=== PATIENT | female | born 1940 | race Caucasian/White ===

== ENCOUNTER 2019-07-19 12:39 | Inpatient (IN) | payer MEDICARE, OTHER ==
[~2019-07-19] VITALS: Ht 167.6 cm; Wt 118.4 kg
[~2019-07-19 12:39] MED LIST: ARTHROTEC EC 51 EACH; ASPIR 8181 M1 PO; B-121000 MC2 PO; CALCIUM 500 +1 EAC5 PO; CIPROFLOXACIN500 M1; COUMADIN 2.5MG2.5 M1; COUMADIN 4 MG TA4 M1 PO; COUMADIN 5 MG TA5 M1 PO; COUMADIN7.5 MG PO; COZAAR 25 MG TA25 M2 PO; ENOXAPARIN150 MG/11 SUBQ; FLAGYL500 MG; GABAPENTIN 100100 MG PO; IRON325 PO; KEFLEX500 M1 PO; KEFLEX500 MG PO; LASIX 20 MG TAB20 MG PO; LEVAQUIN 250 M250 MG PO; MEDROLDOSEPACK PO; MULTIVITAMINS1 EAC7 PO; NORCO 5-325 TA1 EAC2 PO; NORCO 5-325 TA1 EACH PO; ONE-A-DAY WOMENS PO; OXECTA7.5 MG PO; PANTOPRAZOLE SO40 M1 PO; PERCOCET 5-3251 EACH PO; PREDNISONE 5 MG5 M1 PO; PRINIVIL20 MG; PROTONIX40 M4 PO; SORINE 80 MG TA80 M1 PO; ULTRAM 50MG TAB50 MG PO; VITAMIN B-12100 MC1 PO; ZOFRAN ODT4 MG PO; ZOLOFT 50 MG TA50 M1 PO
[2019-07-19 12:43] VITALS: BP 132/75
[2019-07-19] MEDS ORDERED: NEURONTIN100 MG PO (12:52)
[2019-07-19 12:59] LABS: ABSOLUTE EOSINOPHILS 0.1 thou/uL (0.0-0.7); ABSOLUTE MONOCYTES 0.9 thou/uL (0.0-1.2); BASOPHILS 0.3 %; HEMATOCRIT 45.4 % (37.0-47.0); HEMOGLOBIN 15.1 gm/dL (12.0-15.0); LYMPHOCYTES 7.9 %; MCH 35.5 pg (26.0-34.0); MCHC 33.4 g/dL (28.0-37.0); MCV 106.2 fL (80.0-100.0); MONOCYTES 6.9 %; MPV 9.5 fl. (7.2-11.1); NUCLEATED RBCS 0 /100WBC; PLATELET COUNT* 322 thou/uL (150-400); POLYS 83.9 %; RBC 4.27 mil/uL (4.20-5.00); RDW-CV 13.1 % (10.5-14.5); WBC 13.1 thou/uL (4.0-11.0)
[2019-07-19 13:11] LABS: APTT 24.7 Seconds (25.0-31.3); INR 1.1; PROTIME 11.2 Seconds (9.20-11.50)
[2019-07-19 13:15] LABS: CALCIUM 7.8 mg/dL (8.5-10.1); CREATININE 0.9 mg/dL (0.6-1.3); POTASSIUM 4.4 mmol/L (3.5-5.1)
[2019-07-19 13:20] LABS: ALBUMIN 2.3 g/dL (3.4-5.0); MAGNESIUM 1.7 mg/dL (1.8-2.4); TOTAL BILIRUBIN 0.5 mg/dL (<0.1-1.0); TOTAL PROTEIN 6.1 g/dL (6.4-8.2)
[2019-07-19 15:30] VITALS: BP 113/75
[2019-07-19 15:31] VITALS: BP 150/68
--- NOTE | 2019-07-19 15:39 | 2DMMODE ---
[place] [address] 2 D/M-MODE ECHOCARDIOGRAM Name: JUAN JOSÉJACKSON Gamaliel Room: [place] [address] ADM IN M.R.#: [id number] Admission: 07/19/19 Attend Phys: Eugenie tsang Sa Discharge: Date of : 44 Date of Service: 07/19/19 1537 Report #: [id number] THIS REPORT FOR: cc: Cari Cowan,Cari Maradiaga,Dewayne Segovia MD [facility] ~ APPROVED REPORT Study performed: 07/19/2019 14:18:39 EXAM: Comprehensive 2D, Doppler, and color-flow Echocardiogram Patient Location: ER BSA: 2.25 HR: 116 bpm BP: 125/77 mmHg Other Information Study Quality: Fair Indications Atrial Fibrillation 2D Dimensions IVSd: 15.13 (7-11mm) LVOT Diam: 19.68 (18-24mm) LVDd: 44.15 mm PWd: 12.50 (7-11mm) Ascending Ao: 31.14 (22-36mm) LVDs: 33.25 (25-40mm) Aortic Root: 26.12 mm Volumes Left Atrial Volume (Systole) LA ESV Index: 27.00 mL/m2 Aortic Valve AoV Peak Samuel.: 0.92 m/s AO Peak Gr.: 3.37 mmHg LVOT Max P.67 mmHg AO Mean Gr.: 1.89 mmHg LVOT Mean P.61 mmHg LVOT Max V: 0.96 m/s AO V2 VTI: 18.50 cm LVOT Mean V: 0.58 m/s SHENG (VTI): 2.63 cm2 LVOT V1 VTI: 16.01 cm Mitral Valve E/A Ratio: 2.96 [place] [address] 2 D/M-MODE ECHOCARDIOGRAM Name: JACKSON CAN Room: [address] IN ..#: [id number] Admission: 07/19/19 Attend Phys: Eugenie tsang Sa Discharge: Date of : 44 Date of Service: 07/19/19 1537 Report #: [id number] MV Decel. Time: 120.17 ms MV E Max Samuel.: 1.14 m/s MV PHT: 34.85 ms MVA (PHT): 6.31 cm2 TDI E/Lateral E': 11.40 E/Medial E': 16.29 Medial E' Samuel.: 0.07 m/s Lateral E' Samuel.: 0.10 m/s Pulmonary Valve PV Peak Samuel.: 0.88 m/s PV Peak Gr.: 3.07 mmHg Tricuspid Valve RAP Estimate: 5.00 mmHg TR Peak Gr.: 35.57 mmHg RVSP: 40.57 mmHg PA Pressure: 40.57 mmHg Left Ventricle The left ventricle is normal size. There is global hypokinesis of the left ventricle. Mild concentric left ventricular hypertrophy. Left ventricular systolic function is moderately decreased. LVEF is 30-35%. Right Ventricle The right ventricle is normal size. The right ventricular systolic function is normal. Atria The left atrium size is normal. Interatrial septum not well visualized. The right atrium size is normal. Aortic Valve The Aortic valve is sclerotic. No aortic regurgitation is present. There is no aortic valvular stenosis. Mitral Valve There is mitral annular calcification. Mild mitral regurgitation. No evidence of mitral valve stenosis. Tricuspid Valve The tricuspid valve is normal in structure. Mild tricuspid regurgitation. estimated pa pressure 35 mm Hg Pulmonic Valve Pulmonic valve is not well visualized. There is [place] [address] 2 D/M-MODE ECHOCARDIOGRAM Name: JACKSON CAN Gamaliel Room: [address] IN [facility]#: [id number] Admission: 07/19/19 Attend Phys: Eugenie tsang Sa Discharge: Date of : 44 Date of Service: 07/19/19 1537 Report #: [id number] regurgitation. Great Vessels The aortic root is normal in size. IVC is not visualized. Pericardium There is no pericardial effusion. <Conclusion> Mild concentric left ventricular hypertrophy. LVEF is 30-35%. The Aortic valve is sclerotic. <ELECTRONICALLY SIGNED> By: Dewayne Garcia MD, [facility] 07/19/19 [phone] Dewayne Garcia MD, FACC /INF
[2019-07-19] MEDS ORDERED: XANAX 0.5 MG0.5 MG PO (15:53)
--- NOTE | 2019-07-19 15:58 | NUR ---
pt admitted from ed to room 212 at 1520. pt pulled to bed, extra linens removed, tele monitor applied. cardizem gtt at 15 ml/hr. vss.
--- NOTE | 2019-07-19 16:00 | NUR ---
pt states she has not been taking her lasix since she fell and broke her leg because she is unable to get up and go to the bathroom. pt states she is up about 9 lbs from her normal dry weight.
--- NOTE | 2019-07-19 16:36 | NUR ---
per dr mcghee titrate up cardizem slowly so it was increased from 15 ml/hr to 17.5 ml/hr
[2019-07-19 16:40] VITALS: BP 119/85
--- NOTE | 2019-07-19 17:36 | EKG ---
[place] [address] ELECTROCARDIOGRAM REPORT Name: JACKSON CAN Room: [address] ADM IN [facility].#: [id number] Admission: 07/19/19 Attend Phys: Eugenie tsang Sa Discharge: Date of : 44 Date of Service: 07/19/19 1245 Report #: [id number] THIS REPORT FOR: //name// [facility] ED Test Date: 2019-07-19 Test Time: 12:45:56 Pat Name: JACKSON CAN Department: Room: [facility] Gender: F Public Health Doctor: : 1940 Requested By: Arthur Weller Order Number: [id number] MD: Dewayne Garcia Measurements Intervals [place] Rate: 148 P: [place]: QRS: 8 QRSD: 89 T: 98 QT: 297 QTc: 467 Interpretive Statements Atrial fibrillation with rapid V-rate Repolarization abnormality, prob rate related Baseline wander in lead(s) V1,V2 Compared to ECG 01/29/2016 19:40:14 Sinus rhythm no longer present Electronically Signed On 07-19-2019 17:34:03 CDT by Dewayne Garcia [email or web address] <ELECTRONICALLY SIGNED> By: Dewayne Garcia MD, FAC 07/19/19 1734 1245 1245 Dewayne Garcia MD, FAC /EPI
--- NOTE | 2019-07-19 19:15 | NUR ---
called elevated troponin to dr ken, orders received for nitroglycerin paste and sublingual prn nitro for active chest pain.
[2019-07-19 19:50] VITALS: BP 106/62
[2019-07-19 23:50] VITALS: BP 103/56
[2019-07-20 04:15] VITALS: BP 102/60
[2019-07-20 05:15] LABS: HEMOGLOBIN 14.2 gm/dL (12.0-15.0); MCH 34.5 pg (26.0-34.0); MCHC 32.2 g/dL (28.0-37.0); MPV 9.8 fl. (7.2-11.1); RBC 4.12 mil/uL (4.20-5.00); RDW-CV 13.2 % (10.5-14.5); WBC 14.1 thou/uL (4.0-11.0)
[2019-07-20 05:29] LABS: ALBUMIN 2.3 g/dL (3.4-5.0); CALCIUM 7.8 mg/dL (8.5-10.1); MAGNESIUM 1.9 mg/dL (1.8-2.4); PHOSPHORUS* 3.8 mg/dL (2.5-4.9); POTASSIUM 4.7 mmol/L (3.5-5.1)
[2019-07-20 07:45] VITALS: BP 108/65
[2019-07-20 08:35] VITALS: BP 102/60
[2019-07-20 17:36] VITALS: BP 112/54
--- NOTE | 2019-07-20 19:57 | NUR ---
Pt started on cardizem PO today, had N/V multiple times. Zofran given, with a little relief. She refused to get up with PT today. Panus and breast excoration, nystatin powder ordered. Remains afib on the monitor. VSS. Calls approprialty for help. Report given to ASTER platt.
[2019-07-20 20:00] VITALS: BP 104/57
[2019-07-20 20:10] VITALS: BP 127/69
[2019-07-21] VITALS: BP 97/58
[2019-07-21 04:00] VITALS: BP 96/44
[2019-07-21 04:43] LABS: HEMATOCRIT 39.4 % (37.0-47.0); HEMOGLOBIN 12.9 gm/dL (12.0-15.0); MCH 34.7 pg (26.0-34.0); MCHC 32.9 g/dL (28.0-37.0); MCV 105.6 fL (80.0-100.0); MPV 9.5 fl. (7.2-11.1); RBC 3.73 mil/uL (4.20-5.00); RDW-CV 12.9 % (10.5-14.5); WBC 12.8 thou/uL (4.0-11.0)
[2019-07-21 05:02] LABS: CHOLESTEROL 164 mg/dL (<200); HDL CHOLESTEROL 35 mg/dL (>40); LDL CHOLESTEROL 116 mg/dL (<100); TC:HDL 4.7 Ratio (Not establshd); TRIGLYCERIDE 69 mg/dL (<150); VLDL 14 mg/dL (<40)
[2019-07-21 05:06] LABS: SERUM ASSESSMENT Clear
[2019-07-21 07:52] VITALS: BP 119/50
[2019-07-21] MEDS ORDERED: ELIQUIS5 MG PO (08:46)
[2019-07-21] MEDS ORDERED: COREG3.125 MG PO (08:46)
[2019-07-21] MEDS ORDERED: NITROSTAT0.4 MG SUBLING (08:46)
[2019-07-21] MEDS ORDERED: ZETIA10 MG PO (08:58)
[2019-07-21] MEDS ORDERED: FOLIC ACID1 MG PO ×2 (08:58→11:56)
[2019-07-21] MEDS ORDERED: SENNA8.6 MG PO (08:58)
[2019-07-21] MEDS ORDERED: NITROGLYCERIN0.4 MG SUBLING (11:08)
[2019-07-21] MEDS ORDERED: RED YEAST RICE600 M1 PO (11:10)
[2019-07-21 11:45] VITALS: BP 89/47
[2019-07-21] MEDS ORDERED: SENNA PLUS TAB1 EACH PO (11:55)
[2019-07-21 14:13] VITALS: BP 102/60
--- NOTE | 2019-07-23 15:21 | CON ---
[address] [address] CONSULTATION Name: JACKSON CAN Room: [address] IN .R.#: [id number] Admission: 07/19/19 Attend Phys: Eugenie Blackburn Discharge: 07/21/19 Date of : 44 Report #: [id number] THIS REPORT FOR: //name// cc: Cari Cowan Linda J. DO THIS REPORT FOR: //name// CC: Eugenie Cortes DO DATE OF SERVICE: 07/19/2019 CARDIOLOGY CONSULTATION HISTORY OF PRESENT ILLNESS: The patient is a 79-year-old white female who I was asked to see in the hospital after she is noted to be in atrial fibrillation. The patient apparently presented with atrial fibrillation about 4 years ago and required cardioversion. She has been on sotalol since that time. She was on Eliquis for about a year, but then apparently developed GI bleeding and required cauterization. She has had no further bleeding. She last saw her in Cardiology Clinic in February. She denies any recent palpitations, shortness of breath or chest pain. She was doing well until recently she fell and broke her leg. She went to [facility] in [place]. She was admitted overnight and sent home with a brace. She is not very active at this time and uses a walker. She notes that this morning she woke up, felt her heart beating irregular, she felt diaphoretic, short of breath, and had some chest tightness. There is no radiation of the pain. She called EMS and brought here to [place]. She was found to be in atrial fibrillation. She was started on IV diltiazem. She has had no recent syncope, fever or cough. PAST MEDICAL HISTORY: She has had multiple surgical procedures including a cholecystectomy. She had an hemicolectomy for colon cancer. 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 She has had parathyroid surgery. Part of her stomach removed in the past. She has had previous pulmonary embolus. She was diagnosed with obsessive compulsive behavior in the past. She saw a psychiatrist. CURRENT MEDICATIONS: Include Xanax, aspirin, Neurontin, losartan, potassium, Zoloft, sotalol she took 40 mg twice a day, and tramadol. ALLERGIES: SHE HAD ALLERGY TO PROTONIX AND SIMVASTATIN. FAMILY HISTORY: Negative for heart disease. SOCIAL HISTORY: She is . [place] [address] CONSULTATION Name: JACKSON CAN Room: [address] IN M.R.#: [id number] Admission: 07/19/19 Attend Phys: Eugenie Blackburn Discharge: 07/21/19 Date of : 44 Report #: [id number] Nonsmoker and nondrinker. REVIEW OF SYSTEMS: She is overweight, standing 5 feet 6 inches, weighs 251 pounds. She apparently had a sleep study in the past and could not tolerate CPAP. No history of stroke, asthma, liver disease or kidney disease. She has chronic back pain. No chronic skin condition. PHYSICAL EXAMINATION: GENERAL: Revealed an elderly female lying in bed. She appeared in no distress. VITAL SIGNS: She has blood pressure 120/80, pulse is 100, and she is afebrile. HEENT: She was anicteric. Conjunctivae pink. Mucous membranes moist. NECK: . CHEST: Clear to auscultation. CARDIOVASCULAR: Irregular, tachycardia. ABDOMEN: Obese. EXTREMITIES: Had no pitting edema. Dorsalis pedis pulse 1+ bilaterally. SKIN: Cool and dry. NEUROLOGIC: Nonfocal. DIAGNOSTIC DATA: ECG shows atrial fibrillation with rapid ventricular response rate. No significant ST or T-wave change. Her workup, previous echocardiogram done earlier today showed ejection fraction of only 30-35%, left ventricular hypertrophy, and aortic sclerosis. Workup in the Emergency Room included a chest x-ray that showed cardiomegaly and clear lung gallo. LABORATORY WORK: She has lab work. Sodium 143 and creatinine 0.9. Liver function studies reveal alkaline phosphatase is 162. SGOT 34. Troponin 0.34. BNP 7487. TSH 2.7. Her white blood cell count 13.1 and hemoglobin 15.1. IMPRESSION AND RECOMMENDATIONS: 1. Recurrent atrial fibrillation. I would recommend restarting Eliquis. I would increase sotalol to 120 mg twice a day. If she fails to convert, she might require cardioversion. 2. Cardiomyopathy, reason unclear. The patient is on a beta olu and ARB. 3. Obsessive compulsive behavior. 4. Hypertension. The patient is on an ARB and beta olu. 5. History of pulmonary embolus. 6. History of colon cancer. 7. Morbid obesity. 8. Previous splenectomy. 9. Recent fracture of her leg. 10. History of sleep apnea. <ELECTRONICALLY SIGNED> By: Dewayne Garcia MD, [facility] 07/23/19 1521 1707 [id number] Garcia MD, [facility] /nt
--- NOTE | 2019-07-23 16:09 | EKG ---
[place] [address] ELECTROCARDIOGRAM REPORT Name: JACKSON CAN Room: [address] IN [facility]#: [id number] Admission: 07/19/19 Attend Phys: Eugenie tsang Sa Discharge: 07/21/19 Date of : 44 Date of Service: 07/20/19 1626 Report #: [id number] THIS REPORT FOR: //name// [facility] Test Date: 2019-07-20 Test Time: 16:26:40 Pat Name: JACKSON CAN Department: Room: [address] Gender: F Events Traffic Controller: 1883 : 1940 Requested By: Dewayne Garcia Order Number: [id number] Chelsey MD: Agapito Kam Measurements Intervals [place] Rate: 113 P: ME: QRS: -19 QRSD: 80 T: -30 QT: 438 QTc: 601 Interpretive Statements Atrial fibrillation RSR' in V1 or V2, probably normal variant Probable inferior infarct, age indeterminate Prolonged QT interval Compared to ECG 07/19/2019 12:45:56 RSR' in V1 or V2 now present Myocardial infarct finding now present Prolonged QT interval now present Early repolarization no longer present Electronically Signed On 07-23-2019 16:07:48 CDT by Agapito Kam [email or web address] <ELECTRONICALLY SIGNED> By: Agapito Kam MD, [facility] 07/23/19 1607 1626 1626 Agapito Kam MD, [facility] /EPI
== END 2019-07-21 14:00 | disposition home or self-care (01) | DRG 280 ==
LOC: M.ERS 12:39 → M.TBA-ER 13:21 → M.2W 13:21
PROVIDERS: Emergency Medicine Emergency Medical Services; Internal Medicine Cardiovascular Disease; ADMIT Family Medicine
DX: I21.A1 Myocardial infarction type 2 (principal); E43 Unspecified severe protein-calorie malnutrition; R65.11 Systemic inflammatory response syndrome (SIRS) of non-infectious origin with acute organ dysfunction; I48.20 Chronic atrial fibrillation, unspecified; Z68.41 Body mass index [BMI] 40.0-44.9, adult; I43 Cardiomyopathy in diseases classified elsewhere; F32.9 Major depressive disorder, single episode, unspecified; M19.90 Unspecified osteoarthritis, unspecified site; E66.01 Morbid (severe) obesity due to excess calories; E78.5 Hyperlipidemia, unspecified; I11.0 Hypertensive heart disease with heart failure; I50.9 Heart failure, unspecified; F42.9 Obsessive-compulsive disorder, unspecified; D75.89 Other specified diseases of blood and blood-forming organs; E83.42 Hypomagnesemia; E83.51 Hypocalcemia; Z86.711 Personal history of pulmonary embolism; Z85.038 Personal history of other malignant neoplasm of large intestine; Z87.442 Personal history of urinary calculi; Z87.11 Personal history of peptic ulcer disease; Z90.49 Acquired absence of other specified parts of digestive tract; Z90.81 Acquired absence of spleen; Z98.84 Bariatric surgery status; Z79.82 Long term (current) use of aspirin; Z79.899 Other long term (current) drug therapy; Z88.8 Allergy status to other drugs, medicaments and biological substances; Z87.891 Personal history of nicotine dependence; Z86.718 Personal history of other venous thrombosis and embolism

== ENCOUNTER 2019-11-06 01:21 | Inpatient (IN) | payer MEDICARE, OTHER ==
[~2019-11-06] VITALS: Ht 167.6 cm; Wt 124.7 kg
[2019-11-06] VITALS (7 sets, daily range): BP systolic 106–159; BP diastolic 47–86
[~2019-11-06 01:21] MED LIST changes: +COREG3.125 MG PO; +ELIQUIS5 MG PO; +FOLIC ACID1 MG PO; +NEURONTIN100 MG PO; +NITROGLYCERIN0.4 MG SUBLING; +NITROSTAT0.4 MG SUBLING; +RED YEAST RICE600 M1 PO; +SENNA PLUS TAB1 EACH PO; +SENNA8.6 MG PO; +XANAX 0.5 MG0.5 MG PO; +ZETIA10 MG PO
[2019-11-06 01:50] LABS: ABSOLUTE BASOPHILS 0.1 thou/uL (0.0-0.2); ABSOLUTE EOSINOPHILS 0.4 thou/uL (0.0-0.7); ABSOLUTE LYMPHOCYTES 1.3 thou/uL (0.8-5.3); ABSOLUTE MONOCYTES 0.6 thou/uL (0.0-1.2); ABSOLUTE NEUTROPHILS 4.8 thou/uL (1.6-8.1); BASOPHILS 1.1 %; EOSINOPHILS 5.8 %; HEMATOCRIT 43.6 % (37.0-47.0); HEMOGLOBIN 14.4 gm/dL (12.0-15.0); LYMPHOCYTES 18.5 %; MCH 34.5 pg (26.0-34.0); MCHC 33.1 g/dL (28.0-37.0); MCV 104.2 fL (80.0-100.0); MONOCYTES 7.8 %; MPV 10.2 fl. (7.2-11.1); NUCLEATED RBCS 0 /100WBC; PLATELET COUNT* 199 thou/uL (150-400); POLYS 66.8 %; RBC 4.19 mil/uL (4.20-5.00); RDW-CV 14.5 % (10.5-14.5); WBC 7.2 thou/uL (4.0-11.0)
[2019-11-06 02:00] LABS: ANION GAP < 0 mmol/L (7-16); BUN 17 mg/dL (7-18); CALCIUM 7.6 mg/dL (8.5-10.1); CHLORIDE 106 mmol/L (98-107); CO2 40 mmol/L (21-32); CREATININE 0.9 mg/dL (0.6-1.3); GLUCOSE 145 mg/dL (70-99); POTASSIUM 3.2 mmol/L (3.5-5.1); SODIUM 144 mmol/L (136-145)
[2019-11-06 02:01] LABS: INR 1.3; PROTIME 13.4 Seconds (9.20-11.50)
[2019-11-06 02:10] LABS: ALBUMIN 1.7 g/dL (3.4-5.0); ALKALINE PHOSPHATASE 116 U/L (46-116); LIPASE 47 U/L (73-393); MAGNESIUM 1.6 mg/dL (1.8-2.4); NT-PRO BRAIN NAT PEPTIDE 5286 pg/mL (<300); SGOT 16 U/L (15-37); TOTAL BILIRUBIN 0.5 mg/dL (<0.1-1.0); TOTAL PROTEIN 5.6 g/dL (6.4-8.2)
[2019-11-06 02:20] LABS: SGPT 7 U/L (30-65)
--- NOTE | 2019-11-06 07:03 | NUR ---
PT ARRIVED TO UNIT AT 0605. PLACED IN COVID ISOLATION. MEDICATION RECONCILLIATION NEEDS TO BE COMPLETED BY DAY SHIFT. ADMISSION ASSESSMENT AND HX COMPLETE.
--- NOTE | 2019-11-06 09:27 | NUR ---
CM ATTEMPTED TO SPEAK TO THE PT TO DISCUSS HER HOME SITUATION, DISCHARGE PLANNING, AND TO INFORM OF THE ROLE OF CM. PT RESTING WITH YES CLOSED AND NURSING INFORMS THAT PT HAS AMS. CM CONACTED PT'S SON AND HE INFORMS THAT PT RESIDES AT HOME WITH SPOUSE, AND HE LIVES WITH THEM. PT'S SON INFORMS THAT HE IS AT HOME WITH THE PT 19/09 AND PROVIDES ALL CARES FOR HER. PT USES A [employer] LIFT FO TRANSFERS. PT OWNS A WALKER AND ELECTRIC WHEELCHAIR, BUT HAS NOT USED EITHER OVER THE PAST YEAR. PT HAS A HX OF HH, BU PT'S SON COULD NOT RECALL THE NAME. PT HAS 0 HX OF SNF AND PT'S SON INFORMS THAT 'SHE WOULD NEVER AGREE TO GO TO A GROUP HOME'. CM WILL REMAIN AVAILABLE TO ASSIST AND FOLLOW NEEDED.
--- NOTE | 2019-11-06 13:36 | EKG ---
[place] [address] ELECTROCARDIOGRAM REPORT Name: JUAN JOSÉJACKSON Room: [address] ADM IN [facility].#: [id number] Admission: 11/06/19 Attend Phys: Iza Case, Discharge: Date of : 44 Date of Service: 11/06/19 0154 Report #: [id number] THIS REPORT FOR: //name// [facility] ED Test Date: 2019-11-06 Test Time: 01:54:40 Pat Name: JACKSON CAN Department: Room: [facility] Gender: F Medical Information Specialist: YOGESH : 1940 Requested By: Vilma Anderson Order Number: [id number] MD: Dewayne Garcia Measurements Intervals [place] Rate: 52 P: [place]: QRS: 26 QRSD: 98 T: 45 QT: 595 QTc: 554 Interpretive Statements Atrial fibrillation Low voltage, extremity and precordial leads RSR' in V1 or V2, probably normal variant Prolonged QT interval Compared to ECG 07/20/2019 16:26:40 Low QRS voltage now present rate has slowed Electronically Signed On 11-06-2019 13:36:19 CDT by Dewayne Garcia [email or web address] <ELECTRONICALLY SIGNED> By: Dewayne Garcia MD, [facility] 11/06/19 1336 0154 0154 Dewayne Garcia MD, [facility] /EPI
--- NOTE | 2019-11-06 13:38 | EKG ---
[place] [address] ELECTROCARDIOGRAM REPORT Name: JACKSON CAN Room: [address] ADM IN .R.#: [id number] Admission: 11/06/19 Attend Phys: Iza Case, Discharge: Date of : 44 Date of Service: 11/06/19 0330 Report #: [id number] THIS REPORT FOR: //name// [facility] ED Test Date: 2019-11-06 Test Time: 03:30:14 Pat Name: JACKSON CAN Department: Room: [facility] Gender: F Circulation Librarian: MERYL : 1940 Requested By: Vilma Anderson Order Number: [id number] MD: Dewayne Garcia Measurements Intervals [place] Rate: 71 P: [place]: QRS: 15 QRSD: 83 T: 143 QT: 551 QTc: 599 Interpretive Statements Atrial fibrillation Low voltage, precordial leads Abnormal T, consider ischemia, lateral leads Baseline wander in lead(s) III Compared to ECG 11/06/2019 01:54:40 no change Electronically Signed On 11-06-2019 13:38:32 CDT by Dewyane Garcia [email or web address] <ELECTRONICALLY SIGNED> By: Dewayne Garcia MD, [facility] 11/06/19 1338 0330 0330 Dewayne Garcia MD, [facility] /EPI
--- NOTE | 2019-11-06 17:18 | 2DMMODE ---
[place] [address] 2 D/M-MODE ECHOCARDIOGRAM Name: JACKSON CAN Room: [address] IN [facility]#: [id number] Admission: 11/06/19 Attend Phys: Iza Case, Discharge: Date of : 44 Date of Service: 11/06/19 1718 Report #: [id number] THIS REPORT FOR: cc: Cari Cowan,Cari Maradiaga,Dewayne Segovia MD [facility] ~ APPROVED REPORT Study performed: 11/06/2019 15:21:57 EXAM: Comprehensive 2D, Doppler, and color-flow Echocardiogram Patient Location: In-Patient Room #: [facility] Status: routine BSA: 2.18 HR: 72 bpm BP: 106/47 mmHg Rhythm: Atrial Fibrillation Other Information Study Quality: Good Indications Dyspnea 2D Dimensions IVSd: 10.95 (7-11mm) LVOT Diam: 20.19 (18-24mm) LVDd: 41.82 mm PWd: 11.39 (7-11mm) Ascending Ao: 33.08 (22-36mm) LVDs: 21.89 (25-40mm) Aortic Root: 28.08 mm Volumes Left Atrial Volume (Systole) LA ESV Index: 25.80 mL/m2 Aortic Valve AoV Peak Samuel.: 1.63 m/s AO Peak Gr.: 10.65 mmHg LVOT Max P.25 mmHg AO Mean Gr.: 5.58 mmHg LVOT Mean P.51 mmHg LVOT Max V: 1.35 m/s AO V2 VTI: 29.63 cm LVOT Mean V: 0.86 m/s SHENG (VTI): 2.59 cm2 LVOT V1 VTI: 23.97 [place] [address] 2 D/M-MODE ECHOCARDIOGRAM Name: JACKSON CAN Room: [address] IN [facility]#: [id number] Admission: 11/06/19 Attend Phys: Iza Case, Discharge: Date of : 44 Date of Service: 11/06/19 1718 Report #: [id number] Mitral Valve MV Decel. Time: 151.29 ms MV PHT: 43.87 ms MVA (PHT): 5.01 cm2 TDI Medial E' Samuel.: 0.12 m/s Lateral E' Samuel.: 0.14 m/s Pulmonary Valve PV Peak Samuel.: 1.28 m/s PV Peak Gr.: 6.59 mmHg Tricuspid Valve RAP Estimate: 5.00 mmHg TR Peak Gr.: 41.33 mmHg RVSP: 46.00 mmHg PA Pressure: 46.00 mmHg Left Ventricle The left ventricle is normal size. There is normal LV segmental wall motion. There is normal left ventricular wall thickness. Left ventricular systolic function is normal. The left ventricular ejection fraction is within the normal range. LVEF is 55-60%. This study is not technically sufficient to allow evaluation of the LV diastolic function due to atrial fibrillation. Right Ventricle The right ventricle is normal size. The right ventricular systolic function is normal. Atria Left atrium is mildly dilated. Right atrium is mildly dilated. Aortic Valve Mild aortic valve sclerosis. No aortic regurgitation is present. There is no aortic valvular stenosis. Mitral Valve There is mitral annular calcification. The mitral valve is normal in structure. Trace mitral regurgitation. No evidence of mitral valve stenosis. Tricuspid Valve The tricuspid valve is normal in structure. Mild tricuspid regurgitation. estimated pa pressure 50 [place] [address] 2 D/M-MODE ECHOCARDIOGRAM Name: JACKSON CAN Room: [address]#: [id number] Admission: 11/06/19 Attend Phys: Iza Case, Discharge: Date of : 44 Date of Service: 11/06/19 1718 Report #: [id number] Pulmonic Valve Pulmonic valve is not well visualized. Trace pulmonic regurgitation. Great Vessels The aortic root is normal in size. IVC is normal in size and collapses >50% with inspiration. Pericardium There is no pericardial effusion. <Conclusion> LVEF is 55-60%. Left atrium is mildly dilated. Mild aortic valve sclerosis. Mild tricuspid regurgitation. estimated pa pressure 50 mm Hg <ELECTRONICALLY SIGNED> By: Dewayne Garcia MD, [facility] 11/06/198 17 17 Dewayne Garcia MD, FACC /INF
--- NOTE | 2019-11-06 20:11 | NUR ---
ASSUMED PT CARE AT 0730, PT AOX4, NO C/O PAIN OR SHORTNESS OF BREATH. PT BEING TURNED Q2H, SOME SKIN IRRITATION NOTED UNDER PANNUS AND UNDER BOTH BREASTS, CONSULTED, NO NEW ORDERS SO COAL BAGGER CONSULTED TO GET INTERDRY WHICH WAS BROUGHT UP AND PLACED UNDER PANNUS AND BREASTS. PT GOAL IS TO REMAIN FREE FROM SKIN BREAKDOWN. COAL BAGGER ALSO CONSULTED ABOUT GETTING BARIATRIC BED ORDERED FOR PT, STILL AWAITING BED. AM ASSESSMENT CHARTED, MEDS PER MAR, HOURLY ROUNDING OBSERVED, FALL PRECAUTIONS IN PLACE, CALL LIGHT W/IN REACH.
[2019-11-07 00:28] VITALS: BP 97/58
--- NOTE | 2019-11-07 02:17 | NUR ---
PT ALERT ORIENTED. WEAKNESS, PT NEEDS ENCOURAGEMENT TO HOLD WATER GLASS. TELEMETRY SHOWS AFIB RATE CONTROLLED. INCONTINENT OF URINE. O2 AT 4 LITERS NC. AFEBRILE. COVID PENDING. WCTM
[2019-11-07 04:40] VITALS: BP 130/56
[2019-11-07 04:52] LABS: HEMATOCRIT 44.6 % (37.0-47.0); HEMOGLOBIN 14.5 gm/dL (12.0-15.0); MCH 33.7 pg (26.0-34.0); MCHC 32.4 g/dL (28.0-37.0); MCV 104.1 fL (80.0-100.0); MPV 10.5 fl. (7.2-11.1); RBC 4.28 mil/uL (4.20-5.00); RDW-CV 14.3 % (10.5-14.5); WBC 7.3 thou/uL (4.0-11.0)
[2019-11-07 05:10] LABS: CALCIUM 7.9 mg/dL (8.5-10.1); POTASSIUM 4.5 mmol/L (3.5-5.1)
--- NOTE | 2019-11-07 06:39 | NUR ---
PT AM K+ 3.4 prn DOSE OF POTASSIUM GIVEN ALONG WITH SCHEDULED DOSE.
[2019-11-07 08:00] VITALS: BP 116/62
--- NOTE | 2019-11-07 11:44 | NUR ---
ORDERS RECEIVED AND COMPUTERIZED CHART REVIEWED. PATIENT IS BED AND W/C BOUND AND RELIES ON MECHANICAL LIFTING DEVICE FOR TRANSFERS IN/OUT OF BED. REQUIRES TOTAL ASSIST FOR SELF CARES. PATIENT DECLINES P.T. STATING THAT SHE WANTS TO BE TAKEN OFF THERAPY'S LIST A RESULT. DALJIT HULL, MPT
--- NOTE | 2019-11-07 12:28 | NUR ---
ASSUMED PT CARE AT 0730, PT AOX4 BUT SOMETIMES FORGETFUL. PT HAD NO C/O PAIN OR SHORTNESS OF BREATH. PT WAS IN [facility] FOR COVID RULEOUT THIS MORNING BUT TEST CAME BACK NEGATIVE THIS MORNING AND ISO DC'D. PT BEING TURNED Q2H AND IS INCONTINENT OF URINE, BEING CLEANED UP FREQUENTLY. PT GOAL IS TO REMAIN FREE FROM SKIN BREAKDOWN AND KEEP SATS ABOVE 92%. AM ASSESSMENT CHARTED, MEDS PER MAR, HOURLY ROUNDING OBSERVED, FALL PRECAUTIONS IN PLACE, CALL LIGHT W/IN REACH, WILL CONTINUE POC.
--- NOTE | 2019-11-07 14:31 | CON ---
[address] [address] CONSULTATION Name: JACKSON CAN Room: [address] IN M.R.#: [id number] Admission: 11/06/19 Attend Phys: Iza Case MD Discharge: Date of : 44 Report #: [id number] THIS REPORT FOR: //name// cc: Cari Cowan Linda J. DO ~ THIS REPORT FOR: //name// CC: Iza Sanchez DATE OF SERVICE: 11/06/2019 CARDIOLOGY CONSULTATION HISTORY OF PRESENT ILLNESS: The patient is a 79-year-old white female who I was asked to see in the hospital today after she complained of being short of breath. The patient has an extensive and complicated past medical history. She has a history of paroxysmal atrial fibrillation and has required cardioversion in the past. She previously developed a GI bleed while anticoagulated. I last saw her in Cardiology Clinic in February of this year when she was on sotalol. She was recently admitted to [place] in June with AFib. It was decided to aim for rate control and she was taken off the sotalol. She was doing well until the past few days, she has had increasing shortness of breath and cough. She notes her heart was racing. She called EMS and brought here to [place] and admitted. Cardiology consultation was requested. She has had no edema. PAST MEDICAL HISTORY: She has had cholecystectomy, history of colon cancer, gastric bypass for obesity. She has had previous splenectomy at the time of her laparotomy. She has a history of previous pulmonary embolus. She has a history of depression, chronic back pain. She is primarily in a wheelchair, previous esophageal dilatation. CURRENT MEDICATIONS: Consist of Zoloft, [place], Neurontin, Lasix, Xanax, red yeast rice supplements, folic acid. She has been on Xarelto in the past couple of weeks. ALLERGIES: SHE HAS INTOLERANCE TO STATIN DRUGS. FAMILY HISTORY: Her mother had heart disease. SOCIAL HISTORY: She is . She lives here in [place]. Nonsmoker. No alcohol abuse. REVIEW OF SYSTEMS: She is overweight, standing 5 feet 6 inches and weighing [address] [place] [address] CONSULTATION Name: JUAN JOSÉJACKSON Gamaliel Room: [address] IN [facility].#: [id number] Admission: 11/06/19 Attend Phys: Iza Case MD Discharge: Date of : 44 Report #: [id number]. No history of stroke, asthma. She has a history of pulmonary embolus. No liver disease. She had Norris's palsy. No chronic skin condition. PHYSICAL EXAMINATION: GENERAL: Revealed an elderly female lying in bed. She appeared in no distress. VITAL SIGNS: She had a blood pressure of 110/80, pulse is 70. She is afebrile. HEENT: She is anicteric. Conjunctivae are pink. Mucous membranes moist. NECK: Veins difficult to assess due to obesity. CHEST: Clear to auscultation. CARDIOVASCULAR: Irregular rhythm. ABDOMEN: Obese. EXTREMITIES: Had no significant edema. SKIN: Cool and dry. NEUROLOGIC: Nonfocal. DIAGNOSTIC STUDIES: Her ECG on admission showed atrial fibrillation, nonspecific ST and T-wave change. She had an echocardiogram in June of this year that showed an ejection fraction only 35%, aortic sclerosis, left ventricular hypertrophy. Her portable chest x-ray done in the Emergency Room today shows atelectasis, small effusions, pulmonary edema. CT scan of the chest was performed with IV contrast that showed pleural effusions, pulmonary edema. LABORATORY WORK: Sodium 144, potassium 3.2, creatinine 0.9. Liver function studies were normal. Troponin 0.06. BNP 5286. TSH 2.7. Her white blood cell count 7.2, hemoglobin 14.4. IMPRESSION AND RECOMMENDATIONS: 1. Atrial fibrillation. Rate controlled. I would continue chronic anticoagulation with Xarelto. 2. Previous history of colon cancer. 3. History of pulmonary embolism. 4. Chronic back pain. 5. Obesity. Previous bariatric surgery. 6. Previous esophageal dilatation. 7. High blood pressure. The patient has been on an ARB and beta olu in the past. <ELECTRONICALLY SIGNED> By: Dewayne Garcia MD, [facility] 11/07/19 1431 1646 1710Dewayne Garcia MD, FAC /nt
[2019-11-07 16:00] VITALS: BP 159/61
[2019-11-07 20:00] VITALS: BP 120/48
[2019-11-08] VITALS: BP 108/57
--- NOTE | 2019-11-08 02:38 | NUR ---
PT ALERT ORIENTED. ON BARIATIRIC BED. TURN Q 2 HRS. DENIES PAIN. TELEMETRY SHOWS AFIB. INCONTINENT OF URINE. WILL CONTINUE TO MONITOR.
[2019-11-08 04:00] VITALS: BP 123/49
[2019-11-08 04:59] LABS: HEMATOCRIT 42.2 % (37.0-47.0); HEMOGLOBIN 13.9 gm/dL (12.0-15.0); MCH 34.2 pg (26.0-34.0); MCV 103.6 fL (80.0-100.0); MPV 10.4 fl. (7.2-11.1); RBC 4.07 mil/uL (4.20-5.00); RDW-CV 14.2 % (10.5-14.5); WBC 10.2 thou/uL (4.0-11.0)
[2019-11-08 05:15] LABS: CALCIUM 7.8 mg/dL (8.5-10.1); CREATININE 0.9 mg/dL (0.6-1.3); MAGNESIUM 1.7 mg/dL (1.8-2.4); POTASSIUM 4.3 mmol/L (3.5-5.1)
[2019-11-08 07:56] VITALS: BP 130/57
--- NOTE | 2019-11-08 09:33 | NUR ---
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 IN PLACE ORDERED, TRACING A-FIB/RATE CONTROLED- UPON ASSESSMENT PT NOTED TO BE RESTING IN BED, EYES CLOSED- PT A&O X4- INCONT OF B/B- Q 2HOUR TURNS IN PLACE INDICATED- LCTA, DIMINISHED IN BASES- DYSPNEA NOTED ON EXERTION- VSS, O2 SAT 100% ON 3.5L VIA NC- ABD SOFT/OBESE/NON-TENDER, BS X4 QUADS-LAST BM REPORTED 11/07/19- PINKNESS NOTED TO RIGHT PANNUS FOLD- IV NOTED TO LEFT HAND INTACT AND SL- TONY BREAST WITH INNER DRY IN PLACE INDICATED- DRY/SCALEY SKIN NOTED WITH BRUISING- TRACE BLE EDEMA NOTED- GOOD PO INTAKE NOTED THIS AM WITH BREAKFAST- CALL LIGHT AND PERSONAL BELONGINGS WITH IN REACH- PT DENIES ANY C/O PAIN/DISCOMFORT AT THIS TIME- HOURLY ROUNDS IN PLACE R/T SAFETY/NEEDS- ALL NEEDS MET AT THIS TIME-WCTM
[2019-11-08 12:00] VITALS: BP 116/55
--- NOTE | 2019-11-08 14:21 | NUR ---
CHF MEDICATION EDUCATION: Went in to educate about home medications currently on [facility] and home medication list. Current medications for indication include carvedilol and furosemide. Educated about reason for taking each medication, possible side effects and how each works in the body. Gave handout with simple summary of medications. Pt. currently has no questions at this time. Asked to call she has any questions prior to discharge.
--- NOTE | 2019-11-08 15:34 | NUR ---
CM SPOKE TO THE PT'S SON TO DISCUSS DISCHARGE PLANNING IN-CASE PT D/C'S OVER THE WEEKEND. PT'S SON INFROMS THAT THE PLAN IS FOR THE PT TO RETURN HOME AT D/C, AND HE WILL CONTINUE TO PROVIDE CARES FOR HER. CM WILL REMAIN AVAILABLE TO ASSIST AND FOLLOW NEEDED.
[2019-11-08 15:45] VITALS: BP 137/59
[2019-11-08 20:00] VITALS: BP 92/49
[2019-11-09] VITALS: BP 135/72
[2019-11-09 04:00] VITALS: BP 124/58
[2019-11-09 05:09] LABS: HEMATOCRIT 44.2 % (37.0-47.0); HEMOGLOBIN 14.7 gm/dL (12.0-15.0); MCH 33.9 pg (26.0-34.0); MCHC 33.2 g/dL (28.0-37.0); MCV 102.2 fL (80.0-100.0); MPV 10.8 fl. (7.2-11.1); RBC 4.32 mil/uL (4.20-5.00); RDW-CV 14.3 % (10.5-14.5); WBC 9.6 thou/uL (4.0-11.0)
[2019-11-09 05:19] LABS: ANION GAP < 0 mmol/L (7-16); BUN 21 mg/dL (7-18); CHLORIDE 99 mmol/L (98-107); CO2 44 mmol/L (21-32); CREATININE 0.9 mg/dL (0.6-1.3); GLUCOSE 92 mg/dL (70-99); MAGNESIUM 1.7 mg/dL (1.8-2.4); POTASSIUM 4.7 mmol/L (3.5-5.1); SODIUM 141 mmol/L (136-145)
[2019-11-09 07:05] LABS: URINE BILIRUBIN NEGATIVE (Negative); URINE BLOOD 2+ (Negative); URINE CLARITY CLEAR; URINE COLOR YELLOW; URINE GLUCOSE-RANDOM NEGATIVE (Negative); URINE KETONES NEGATIVE (Negative); URINE LEUKOCYTES-REFLEX 2+ (Negative); URINE NITRITE-REFLEX NEGATIVE (Negative); URINE PROTEIN NEGATIVE (Negative); URINE UROBILINOGEN 0.2 E.U./dl (0.2-1.0)
[2019-11-09 07:17] LABS: HYALINE CASTS >10 Many /LPF (None Seen); SQUAMOUS >10 Many /LPF (0-3)
[2019-11-09 07:19] LABS: CRYSTALS None Seen /LPF (None Seen); URINE RBC 0-2 Rare /HPF (0-2)
[2019-11-09 07:34] VITALS: BP 120/59
--- NOTE | 2019-11-09 08:09 | NUR ---
ASSUMED CARE OF PT THIS AM AROUND 07- FISH HATCHERY WORKER IN PLACE ORDERED, TRACING A-FIB/RATE CONTROLED- UPON ASSESSMENT PT NOTED TO BE RESTING IN BED- PT A&O X4- INCONT OF B/B, PURWIK IN PLACE- Q 2HOUR TURNS IN PLACE INDICATED- LCTA, RESP EVEN AND UN-LABORED- VSS, O2 SAT 96% ON 3.5L VIA NC- ABD SOFT/OBESE/NON-TENDER, BS X4 QUADS- BM REPORTED ON PRIOR SHIFT- IV NOTED TO LEFT WRIST INTACT AND SL- MG NOTED AT 1.7 AND CURRENLTY BEING REPLACED PER IV PER PROTOCOL WITH REDAW TO FOLLOW- 1+ UE AND LE EDEMA NOTED WITH DRYNESS- INNER DRY TO TONY BREAST INDICATED- PT DENIES ANY C/O PAIN/DISCOMFORT AT THIS TIME- CALL LIGHT AND PERSONAL BELONGINGS WITH IN REACH- PT MAKES NEEDS KNOWN- ALL NEEDS MET AT THIS TIME-WCTM
[2019-11-09 12:14] VITALS: BP 120/54
[2019-11-09 16:01] VITALS: BP 110/58
[2019-11-09 20:00] VITALS: BP 117/56
[2019-11-10] VITALS: BP 122/47
[2019-11-10 04:00] VITALS: BP 125/54
--- NOTE | 2019-11-10 05:30 | NUR ---
PT IS A+OX4. REPORTED INCREASED PAIN IN RIGHT FOOT. PT IS BEDBOUND AND DENIES RECENT INJURY OTHER THAN "I TWISTED IT ABOUT A MONTH AGO." PT HAS AN AREA OF BRUISING AND EDEMA ON RIGHT LATERAL ASPECT OF FOOT, PT REQUESTED 2 NORCO INSTEAD OF HER USUAL ONE. ACEWRAP AND ICE APPLIED AND ELEVATED FOOT. PT HAS BEEN RESTING SINCE. CALL LIGHT IN REACH. HOURLY ROUNDING FOR SAFETY.
[2019-11-10 07:39] VITALS: BP 128/69
--- NOTE | 2019-11-10 08:24 | NUR ---
ASSUMED CARE OF PT THIS AM AROUND 714- ANALYST COMPETITIVE INTELLIGENCE IN PLACE ORDERED, TRACING A-FIB/RATE CONTROLED- UPON ASSESSMENT PT NOTED TO BE RESTING IN BED- PT A&O X4- INCONT OF B/B- BED BOUND WITH Q2 HOUR TURNS IN PLACE INDICATED- LCTA, RESP EVEN AND UN-LABORED- VSS, O2 SAT 97% ON 3.5 L VIA NC- ABD SOFT/OBESE/NON-TENDER, BS X4 QUADS- LAST BM REPORTED ON PRIOR SHIFT- IV NOTED TO LEFT WRIST INTACT AND SL- IV ROCEPHIN ORDERED THIS AM WITH GIVEN PPRESCRIBED- SET UP WITH MEALS, GOOD PO INTAKE NOTED- PT REPORTS PAIN 09/05 TO RIGHT FOOT, DEBRA WRAP WITH ICE PACK IN PLACE AND ELEVATED ON PILLOW- CALL LIGHT AND PERSONAL BELONGINGS WITH IN REACH- PT MAKES NEEDS KNOWN- ALL NEEDS MET AT THIS TIME-WCTM
[2019-11-10] MEDS ORDERED: LASIX 40 MG TAB40 MG PO (08:36)
[2019-11-10] MEDS ORDERED: CEFUROXIME250 MG PO (08:36)
[2019-11-10] MEDS ORDERED: AZITHROMYCIN 2250 MG PO (08:36)
[2019-11-10 09:17] LABS: BUN 23 mg/dL (7-18); CALCIUM 7.7 mg/dL (8.5-10.1); CHLORIDE 97 mmol/L (98-107); CREATININE 0.9 mg/dL (0.6-1.3); GLUCOSE 120 mg/dL (70-99); MAGNESIUM 2.1 mg/dL (1.8-2.4); NT-PRO BRAIN NAT PEPTIDE 4925 pg/mL (<300); POTASSIUM 4.3 mmol/L (3.5-5.1); SODIUM 139 mmol/L (136-145)
[2019-11-10 09:20] LABS: CO2 > 45 mmol/L (21-32)
[2019-11-10 13:07] VITALS: BP 109/48
== END 2019-11-10 15:43 | disposition home health service (06) | DRG 291 ==
LOC: M.ERS 01:21 → M.2W 04:58 → M.TBA-ER 04:58 → M.2W 06:10
PROVIDERS: Emergency Medicine; Internal Medicine; ADMIT Internal Medicine; ATTEND Internal Medicine
DX: I11.0 Hypertensive heart disease with heart failure (principal); G92 Toxic encephalopathy; J96.01 Acute respiratory failure with hypoxia; R53.2 Functional quadriplegia; J16.8 Pneumonia due to other specified infectious organisms; I48.20 Chronic atrial fibrillation, unspecified; D68.69 Other thrombophilia; Z68.41 Body mass index [BMI] 40.0-44.9, adult; N30.01 Acute cystitis with hematuria; I50.43 Acute on chronic combined systolic (congestive) and diastolic (congestive) heart failure; K27.9 Peptic ulcer, site unspecified, unspecified as acute or chronic, without hemorrhage or perforation; F41.1 Generalized anxiety disorder; E66.01 Morbid (severe) obesity due to excess calories; R53.81 Other malaise; E87.6 Hypokalemia; I27.20 Pulmonary hypertension, unspecified; I07.1 Rheumatic tricuspid insufficiency; S93.401A Sprain of unspecified ligament of right ankle, initial encounter; X58.XXXA Exposure to other specified factors, initial encounter; F32.9 Major depressive disorder, single episode, unspecified; M19.90 Unspecified osteoarthritis, unspecified site; E83.42 Hypomagnesemia; I48.0 Paroxysmal atrial fibrillation; G89.29 Other chronic pain; M54.9 Dorsalgia, unspecified; K57.90 Diverticulosis of intestine, part unspecified, without perforation or abscess without bleeding; Z66 Do not resuscitate; Z20.828 Contact with and (suspected) exposure to other viral communicable diseases; Y92.89 Other specified places as the place of occurrence of the external cause; Y99.8 Other external cause status; Y93.89 Activity, other specified; Z85.038 Personal history of other malignant neoplasm of large intestine; Z87.891 Personal history of nicotine dependence; Z87.442 Personal history of urinary calculi; Z74.01 Bed confinement status; Z86.711 Personal history of pulmonary embolism; Z90.49 Acquired absence of other specified parts of digestive tract; Z98.84 Bariatric surgery status; Z79.01 Long term (current) use of anticoagulants; Z79.899 Other long term (current) drug therapy; Z88.8 Allergy status to other drugs, medicaments and biological substances; Z91.048 Other nonmedicinal substance allergy status